=== PATIENT | male | born 1980 | race Caucasian/White ===

== ENCOUNTER → 2025-01-02 08:35 | Outpatient (REF) | payer OTHER, SELFPAY | LOC: HWRAD 08:35 | PROVIDERS: ATTENDING PHYSICIAN Otolaryngology | DX: J33.0 Polyp of nasal cavity (principal); R06.83 Snoring; G47.33 Obstructive sleep apnea (adult) (pediatric) | CPT/HCPCS: 70486 ==

== ENCOUNTER → 2025-02-20 18:28 | Outpatient (REF) | payer OTHER, SELFPAY | LOC: CLAB 18:28 | PROVIDERS: ATTENDING PHYSICIAN Otolaryngology | DX: J32.9 Chronic sinusitis, unspecified (principal) | CPT/HCPCS: 88304; 88311 ==

== ENCOUNTER 2025-04-13 06:28 | Day surgery (SDC) | payer OTHER, SELFPAY | END 2025-04-13 16:17 | disposition home or self-care (01) | LOC: GI 06:28 | PROVIDERS: ATTENDING PHYSICIAN Internal Medicine Gastroenterology | DX: K51.20 Ulcerative (chronic) proctitis without complications (principal); K64.0 First degree hemorrhoids; K57.30 Diverticulosis of large intestine without perforation or abscess without bleeding; K52.9 Noninfective gastroenteritis and colitis, unspecified | CPT/HCPCS: 45380; 88305 ==